=== PATIENT | male | born 1990 | race American Indian/Alaskan Native ===

== ENCOUNTER 2020-09-23 20:27 | Emergency (ER) | payer BC ==
[2020-09-23 20:53] VITALS: BP 137/72
--- NOTE | 2020-09-24 00:28 | Emergency Department Report ---
ED General Adult HPI - General Chief complaint: Chest Pain Stated complaint: CHEST PAIN Time Seen by Provider: 09/24/20 00:18 Source: patient Mode of arrival: Ambulatory Limitations: No Limitations - History of Present Illness Initial comments: 30-year-old male patient with history of G6PD deficiency presents to the emergency department with complaints of postprandial chest pain for 5 days. Patient states symptoms began after he took a male performance enhancement medication his vicente gave him. Prior to taking this medication, patient had never experienced similar symptoms. Describes the pain as "cramping," constant, non-radiating, worse with eating and laying flat. No history of cardiopulmonary disease. No history of venous thromboembolism. No history of hypertension, hyperlipidemia, diabetes. No known family history of early heart disease. Endorses tobacco use. Denies fever, chills, cough, shortness of breath, wheezing, nausea, vomiting, diaphoresis, palpitations, lower extremity pain/swelling, syncope. Denies all other complaints at this time. - Related Data Previous Rx's Medication Instructions Recorded Last Taken Type Ibuprofen [Motrin 800 MG tab] 800 mg PO Q8HR PRN #25 tablet 12/17/15 Unknown Rx Famotidine [Pepcid] 20 mg PO BID #14 tablet 09/24/20 Unknown Rx Allergies Allergy/AdvReac Type Severity Reaction Status Date / Time yogurt Allergy Unknown Uncoded 09/23/20 20:52 ED Review of Systems ROS: Stated complaint: CHEST PAIN Other details as noted in HPI Other: GENERAL: Negative for fever, chills, weight change, anorexia, fatigue. ENT: Negative for ear pain, difficulty hearing, sore throat, nasal congestion, epistaxis. CARDIOVASCULAR: Positive for chest pain. PULMONARY: Negative for cough, dyspnea, wheezing, orthopnea, cyanosis. GASTROINTESTINAL: Negative for abdominal pain, nausea, vomiting, diarrhea, constipation. MUSCULOSKELETAL: Negative for joint pain, joint swelling, myalgias, back pain, neck pain. NEUROLOGICAL: Negative for headache, seizure, syncope, paresthesias, weakness. INTEGUMENTARY: Negative for erythema, rash, diaphoresis, laceration, ecchymosis. HEMATOLOGICAL: Negative for hemoptysis, hematemesis, hematochezia, hematuria. PSYCHIATRIC: Negative for hallucinations, suicidal ideation, homicidal ideation, anxiety, depression. ED Past Medical Hx - Past Medical History Previous Medical History?: Yes Additional medical history: G6PD deficiency - Surgical History Past Surgical History?: No Hx Coronary Stent: No Hx Open Heart Surgery: No Hx Pacemaker: No Hx Internal Defibrillator: No Hx Cholecystectomy: No Hx Appendectomy: No Hx Breast Surgery: No - Social History Smoking Status: Never Smoker Substance Use Type: None - Medications Home Medications: Home Medications Medication Instructions Recorded Confirmed Last Taken Type Ibuprofen [Motrin 800 MG tab] 800 mg PO Q8HR PRN #25 tablet 12/17/15 Unknown Rx Famotidine [Pepcid] 20 mg PO BID #14 tablet 09/24/20 Unknown Rx ED Physical Exam - General Limitations: No Limitations - Other Other exam information: General: Awake and alert. No acute distress. BMI > 30. Head: Atraumatic, normocephalic. Eyes: EOMI. Pupils are equal and round. Normal sclera and conjunctiva. ENT: Oral mucosa is moist. Normal pharyngeal exam. Neck: Supple. No lymphadenopathy. Pulmonary: No respiratory distress. Clear to auscultation bilaterally. Cardiac: Regular rate and rhythm. Pulses are palpable and equal bilaterally. No lower extremity cyanosis or edema. Skin: Warm and dry. No rashes. Abdomen: Soft, non-tender, non-protuberant. No guarding, rigidity, or rebound. Bowel sounds are normal. No organomegaly or masses noted. Back: Normal alignment. No CVA tenderness. Extremities: Symmetrical. Full range of motion intact. Neurological: Alert and oriented, appropriately interactive, no focal deficits. Psych: Cooperative. Appropriate mood and affect. Speech is evenly metered. Thoughts are logically construed. ED Course Vital Signs 09/23/20 20:48 Temperature 98.3 F Pulse Rate 78 Respiratory 16 Rate Blood Pressure 137/72 O2 Sat by Pulse 97 Oximetry ED Medical Decision Making - EKG Data 09/24/20 00:28 EKG shows normal sinus rhythm with a ventricular rate of 63 bpm. Normal axis. Normal OK interval. Normal QT interval. Good R wave progression. Isolated T wave inversion in aVL. No ST segment changes. Over read by attending emergency physician, who agrees with this interpretation. - Medical Decision Making Differential diagnosis including but not limited to: pneumothorax, pleural effusion, Boerhaave syndrome, pneumonia, pericarditis, pericardial effusion/cardiac tamponade On reevaluation, patient remains stable. EKG without acute injury pattern. Chest x-ray is negative. No hypoxia, no respiratory distress. Pain is controlled. Exceedingly low clinical suspicion for acute coronary syndrome given patient's age and unremarkable medical history. Suspect patient's pain is attributable to GERD/esophagitis due to the postprandial nature of his discomfort. No clinical indication for further diagnostic work-up on an emergent basis at this time. Patient will be discharged home with prescription for H2 tressa and referred to primary care provider for close outpatient follow-up. Patient expressed understanding and is agreeable to plan of care. Strict return precautions provided. Repeat exam is unremarkable and benign. History, exam, diagnostic testing, and current condition do not suggest worrisome pathology to warrant further testing, continued ED treatment, admission, or surgical evaluation at this point. Given the low probability of a significant medical illness, it would be more likely to result in harm than benefit to perform further testing at this stage. Discussed findings, presumptive diagnosis, need for follow-up and specific signs/symptoms that should prompt immediate return to the emergency department. Instructions were explained in detail to the patient in addition to giving written discharge information. Patient expressed understanding and was given the opportunity to ask questions, all of which were satisfactorily answered prior to discharge home . Critical care attestation.: If time is entered above; I have spent that time in minutes in the direct care of this critically ill patient, excluding procedure time. ED Disposition Clinical Impression: Chest pain Qualifiers: Chest pain type: unspecified Qualified Code(s): R07.9 - Chest pain, unspecified Disposition: DC-01 TO HOME OR SELFCARE Is pt being admited?: No Does the pt Need Aspirin: No Condition: Stable Instructions: Nonspecific Chest Pain, Adult Additional Instructions: Take Tylenol every 4 hours as needed for pain. Take Pepcid as directed. Avoid alcohol until symptoms resolve. Avoid fatty/greasy/spicy foods until symptoms resolve. Avoid lying down within 3 hours of eating. Follow-up with primary care provider this week. Call tomorrow to schedule an appointment. See referral information below. Return to the emergency department immediately for new or worsening symptoms. Specifically, return to the emergency department immediately for fever, worsening pain, difficulty breathing, wheezing, or any other concerns. Prescriptions: Famotidine [Pepcid] 20 mg PO BID #14 tablet Referrals: PADMINI LINDSEY MD [Staff Physician] - 3-5 Days [facility] [Provider Group] - 3-5 Days Time of Disposition: 01:42
--- NOTE | 2020-09-24 01:26 | XRay Report ---
XR chest routine 2V INDICATION / CLINICAL INFORMATION: chest pain COMPARISON: None available. FINDINGS: SUPPORT DEVICES: None. HEART / MEDIASTINUM: No significant abnormality. LUNGS / PLEURA: Lungs are clear. Costophrenic sulci are sharp. No pneumothorax. ADDITIONAL FINDINGS: No significant additional findings. IMPRESSION: 1. No acute findings. Signer Name: Chad Liu MD Signed: 09/24/2020 1:22 AM Workstation Name: [id number]
--- NOTE | 2020-09-25 10:29 | Electrocardiograph Report ---
[facility] Test Date: 2020-09-23 Test Time: 20:54:15 Pat Name: LUDWIN BELTRAN Department: Room: Gender: M Director Maternal Child: GUILLERMO : 1990 Requested By: SHAWN PARK III Order Number: [id number] Reading MD: Bc Fu Measurements Intervals [place] Rate: 63 P: 67 NC: 171 QRS: 60 QRSD: 94 T: 81 QT: 389 QTc: 399 Interpretive Statements Sinus rhythm Inferior ST elevation, consider early repolarization, pericarditis or acute injury Nonspecific T abnrm, anterolateral leads No previous ECG available for comparison Electronically Signed On 09-25-2020 10:28:39 EDT by Bc Fu
== END 2020-09-24 02:45 | disposition home or self-care (01) ==
LOC: ED 20:27
DX: R07.89 Other chest pain (principal); Z79.1 Long term (current) use of non-steroidal anti-inflammatories (NSAID); Z79.899 Other long term (current) drug therapy; Z88.8 Allergy status to other drugs, medicaments and biological substances
CPT/HCPCS: 71046; 93005